=== PATIENT | male | born 1980 | race Caucasian/White ===

== ENCOUNTER 2017-07-31 16:27 | Emergency (ER) | payer OTHER ==
[2017-07-31 16:53] VITALS: BP 129/66
--- NOTE | 2017-07-31 17:47 | UC ---
Ear Complaint HPI - HPI Summary HPI Summary: Patient presents with right ear pain and drainage today with sore throat. Drainage is yellow and sticky. Denies chest congestion. Endorses cough. Denies fevers, sweats and chills. He endorses sick contacts and states his son is completing a course of abx for an ear infection. He is otherwise healthy and takes no medications. Non-smoker. - History of Current Complaint Chief Complaint: UCGeneralIllness Stated Complaint: THROAT PAIN Time Seen by Provider: 07/31/17 17:00 Hx Obtained From: Patient Onset/Duration: Sudden Onset Severity Initially: Moderate Severity Currently: Moderate Pain Intensity: 2 Pain Scale Used: 0-10 Numeric Associated Signs/Symptoms: Positive: Discharge, URI Symptoms. Negative: Hearing Loss, Foreign Body Sensation, Trauma to Ear - Allergies/Home Medications Allergies/Adverse Reactions: Allergies Allergy/AdvReac Type Severity Reaction Status Date / Time No Known Allergies Allergy Verified 07/31/17 16:54 PMH/Surg Hx/FS Hx/Imm Hx Previously Healthy: Yes - Surgical History Surgical History: Yes Surgery Procedure, Year, and Place: as child mastoid bone in right ear removed - Family History Known Family History: Positive: Unknown - Social History Occupation: Employed Full-time Lives: With Family Alcohol Use: Occasionally Substance Use Type: None Smoking Status (MU): Never Smoked Tobacco Have You Smoked in the Last Year: No Review of Systems Constitutional: Negative Skin: Negative ENT: Ear Ache, Sinus Pain/Tenderness Respiratory: Cough Cardiovascular: Negative Motor: Negative Neurovascular: Negative Musculoskeletal: Negative Neurological: Negative Psychological: Negative Is Patient Immunocompromised?: No All Other Systems Reviewed And Are Negative: Yes Physical Exam Triage Information Reviewed: Yes Appearance: Well-Appearing, Well-Nourished Vital Signs: Initial Vital Signs Temp 99.3 F 07/31/17 16:48 Pulse 73 07/31/17 16:48 Resp 18 07/31/17 16:48 BP 129/66 07/31/17 16:48 Pulse Ox 100 07/31/17 16:48 Vital Signs Reviewed: Yes Eye Exam: Normal Eyes: Positive: Conjunctiva Clear ENT: Positive: Hearing grossly normal, TMs normal - yellow serous drainage from the right ear. Negative: TM bulging, TM dull, TM red Neck exam: Normal Neck: Positive: Supple, No Lymphadenopathy Respiratory Exam: Normal Respiratory: Positive: Chest non-tender, Lungs clear Cardiovascular Exam: Normal Cardiovascular: Positive: RRR Musculoskeletal Exam: Normal Musculoskeletal: Positive: Strength Intact Neurological Exam: Normal Neurological: Positive: Alert Psychological Exam: Normal Psychological: Positive: Normal Response To Family Skin Exam: Normal Ear Complaint Course/Dx - Course Course Of Treatment: Patient evaluated for yellow serous drainage from the right ear. Denies fevers, sweats and chills. He is given ofloxacin drops and tessalon perles for cough and ear drainage. Patient is OK with discharge. - Differential Dx/Diagnosis Differential Diagnosis/HQI/PQRI: Otitis Externa, Otitis Media, URI Provider Diagnoses: Otitis Externa; Cough Discharge - Discharge Plan Condition: Stable Disposition: HOME Prescriptions: Benzonatate CAP* [Tessalon CAP*] 100 mg PO TID #21 cap Ofloxacin 0.3% OTIC.STEVE* [Floxin 0.3% OTIC.STEVE*] 1 drop .SEE ORDER DAILY #1 btl Patient Education Materials: Otitis Externa (ED), Acute Cough (ED) Referrals: No Primary Care Phys,NOPCP [Primary Care Provider] - Additional Instructions: Follow up with PCP as needed Ofloxacin drops into the L ear - 10 drops once daily for 7 days Tessalon perles - up to three times daily for cough You likely have an upper respiratory infection which will be treated best with supportive care: Humidifier in the home will help. hot tea with lemon and honey will help with any drainage or sore throat. Drink plenty of fluids. Tylenol 650mg three times daily for any pain related to your symptoms. OTC cough drops or throat drops.
== END 2017-07-31 17:17 | disposition home or self-care (01) ==
LOC: UCEAST 16:27
DX: H60.91 Unspecified otitis externa, right ear (principal); R05 Cough
CPT/HCPCS: 87651; 99212; G0463